=== PATIENT | female | born 1975 | race Two or more races ===

== ENCOUNTER 2018-06-09 21:31 | Emergency (ER) | payer OTHER ==
[~2018-06-09] VITALS: Ht 165.1 cm; Wt 109.8 kg
[2018-06-09] MEDS ORDERED: LISINOPRIL-HCT1 EACH ORAL (21:43)
[2018-06-09] MEDS ORDERED: ASPIRIN81 M3 PO (21:43)
--- NOTE | 2018-06-09 21:49 | NUR ---
ED Nurse Note: PT CAME IN FROM HOME C/O COUGH AND THROAT SWELLING. PER PT IT FEEL IF SOMETHING IS STUCK IN HER THROAT. PT HAS PAIN IN HER THROAT DUE TO COUGH
[2018-06-09 21:50] VITALS: BP 144/90
[2018-06-09] MEDS ORDERED: ALBUTEROL SULF8.5 GM INH (22:20)
[2018-06-09] MEDS ORDERED: MUCINEX FAST-M1 EAC4 PO (22:20)
[2018-06-09] MEDS ORDERED: TEMOVATE15 GM TOP (22:20)
[2018-06-09 22:27] VITALS: BP 144/90
--- NOTE | 2018-06-09 22:28 | NUR ---
ER DISCHARGE NOTE: Patient is cleared to be discharged per ERMD, pt is aox4, on room air, with stable vital signs. pt was given dc and prescription instructions, pt was able to verbalize understanding, pt id band remvoed. pt is able to ambulate with steady gait. pt took all belongings.
--- NOTE | 2018-06-10 01:03 | Emergency Room Report ---
History of Present Illness General Chief Complaint: Upper Respiratory Illness Source: Patient Present Illness HPI 43-year-old female presents to ED c/o sore throat, cough and congestion x 1 day. pain is dull 4/10 nonradiating. notes cough with phlegm. denies fevesr or chills. denies sick contacts or recent travel. no other aggravating or relieving factors. denies any other assoicated symptoms. Allergies: Coded Allergies: MORPHINE (Verified Allergy, Unknown, 06/09/18) Patient History Past Medical History: HTN Past Surgical History: wilmer Pertinent Family History: none Social History: Denies: smoking, alcohol use, drug use Last Menstrual Period: 05/13/2018 Now: No Immunizations: UTD Reviewed Nursing Documentation: PMH: Agreed; PSxH: Agreed Nursing Documentation-PMH Past Medical History: No History, Except For Hx Hypertension: Yes Hx Gastrointestinal Problems: Yes - cholecystectomy 1999 Review of Systems All Other Systems: negative except mentioned in HPI Physical Exam Vital Signs Date Time Temp Pulse Resp B/P (MAP) Pulse Ox O2 Delivery O2 Flow Rate FiO2 06/09/18 21:36 97.9 83 16 144/90 95 Room Air Sp02 EP Interpretation: reviewed, normal General Appearance: no apparent distress, alert, GCS 15, non-toxic Head: normocephalic, atraumatic Eyes: bilateral eye normal inspection, bilateral eye PERRL ENT: hearing grossly normal, no angioedema, normal voice, TMs + canals normal, pharyngeal erythema Neck: full range of motion, supple/symm/no masses Respiratory: chest non-tender, lungs clear, normal breath sounds, speaking full sentences Cardiovascular #1: regular rate, rhythm, no edema Cardiovascular #2: 2+ carotid (R), 2+ carotid (L), 2+ radial (R), 2+ radial (L) , 2+ dorsalis pedis (R), 2+ dorsalis pedis (L) Gastrointestinal: normal bowel sounds, non tender, soft, non-distended, no guarding, no rebound Rectal: deferred Genitourinary: normal inspection, no CVA tenderness Musculoskeletal: back normal, gait/station normal, normal range of motion, non- tender Neurologic: alert, oriented x3, responsive, motor strength/tone normal, sensory intact, speech normal Psychiatric: judgement/insight normal, memory normal, mood/affect normal, no suicidal/homicidal ideation Reflexes: 3+ bicep (R), 3+ bicep (L), 3+ tricep (R), 3+ tricep (L), 3+ knee (R) , 3+ knee (L) Skin: normal color, warm/dry, well hydrated, rash - eczematous rash to fingers Lymphatic: no adenopathy Medical Decision Making Diagnostic Impression: Primary Impression: Rash Additional Impression: Upper respiratory infection Qualified Codes: J06.9 - Acute upper respiratory infection, unspecified ER Course Hospital Course 43-year-old female presents to ED complaining of cough, congestion and sore throat, and rash Differential diagnoses include: URI, pharyngitis, otitis media, asthma Clinical course Patient placed on stretcher. After initial history, physical exam reveals a young female in no acute distress. Bilateral TM unremarkable. minimal pharyngeal erythema. No tonsillar exudates. No lymphadenopathy. lungs clear. abdomen soft. patient has bumpy eczematous rash to fingers. appears like dishydrotic ezcema Discussed findings with patient. Safe for discharge close outpatient follow- up. We'll provide prescriptions. patient states she has a PMD Diagnosis - rash, URI Stable and discharged home with Rx clobetasol, mucinex, albuterol. Instructed to followup with PMD. Return to ED if symptoms recur or worsen Last Vital Signs Date Time Temp Pulse Resp B/P (MAP) Pulse Ox O2 Delivery O2 Flow Rate FiO2 06/09/18 22:27 97.9 83 16 144/90 95 Room Air Status: improved Disposition: HOME, SELF-CARE Condition: Stable Scripts Albuterol Sulfate* (ALBUTEROL SULFATE MDI*) 8.5 Gm Hfa.aer.ad 2 PUFF INH Q6H, #1 EA 0 Refills Prov: Eligio Aiken MD 06/09/18 Diphenhydram/PE/Dm/Acetamin/GG (Mucinex Fast-Max Day-Nite Cold) 1 Each Tablet.seq 1 EACH PO Q6HR, #30 SEQUEL Prov: Eligio Aiken MD 06/09/18 Clobetasol Propionate (Clobetasol Propionate) 15 Gm Oint...g. 1 APPLIC TOP TWICE A DAY, #15 GM Prov: Eligio Aiken MD 06/09/18 Referrals: Ameya Franco. [facility] Patient Instructions: Upper Respiratory Infection, Adult, Hand Dermatitis, Easy -to-Read Eligio Aiken MD Jun 10, 2018 01:03
== END 2018-06-09 22:28 | disposition home or self-care (01) ==
LOC: EMR 22:00
DX: J06.9 Acute upper respiratory infection, unspecified (principal); I10 Essential (primary) hypertension
CPT/HCPCS: 99283

== ENCOUNTER 2020-02-08 15:13 | Emergency (ER) | payer OTHER ==
[~2020-02-08] VITALS: Ht 165.1 cm; Wt 117.0 kg
[~2020-02-08 15:13] MED LIST: ALBUTEROL SULF8.5 GM INH; ASPIRIN81 M3 PO; LISINOPRIL-HCT1 EACH ORAL; MUCINEX FAST-M1 EAC4 PO; TEMOVATE15 GM TOP
[2020-02-08] MEDS ORDERED: ASPIRIN325 MG ORAL (15:26)
[2020-02-08] MEDS ORDERED: GABAPENTIN100 MG ORAL (15:26)
[2020-02-08] MEDS ORDERED: Fluorescein Strips RIGHT EYE ONE (15:30)
[2020-02-08] MEDS ORDERED: Tetracaine 0.5% Opth 4ml Soln RIGHT EYE ONE (15:30)
--- NOTE | 2020-02-08 15:32 | NUR ---
ED Nurse Note: Pt walked into ED from home for R eye problems. She has R eye pain 7/10, itching, redness since yesterday. Visual acuity test done. Pt is alert and orientedx4, ambulatory. She feels as if "balls in her eyes."
[2020-02-08 15:34] VITALS: BP 129/81
--- NOTE | 2020-02-08 16:23 | Emergency Room Report ---
History of Present Illness General Chief Complaint: Eye Problems Source: Patient Present Illness HPI 44 YO female presents to the ED c/o 10/07 in severity right eye scratching sensation, erythema and pain. Pt. denies contact lens use. She denies having anything notable get into her eye. She denies loss of vision or changes in her vision. Pt. reports symptoms began in the inner corner of the right eye this am and have progressed to the rest of the eye. She denies itchiness. She denies nausea or vomiting. Pt. 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 Pt. reports some increased lacrimation. She reports hx of elevated BP's but have been normal recently. Denies: Floaters, Flashing lights, or Diplopia/blurry vision. Allergies: Coded Allergies: MORPHINE (Verified Allergy, Unknown, 06/09/18) COVID-19 Screening Contact w/high risk pt: No Experienced COVID-19 symptoms?: No COVID-19 Testing performed SENIOR QUALITY ASSURANCE SPECIALIST: No Patient History Past Medical History: see triage record Past Surgical History: none Pertinent Family History: none Now: No Reviewed Nursing Documentation: PMH: Agreed; PSxH: Agreed Nursing Documentation-PMH Past Medical History: No History, Except For Hx Hypertension: Yes Hx Gastrointestinal Problems: Yes - cholecystectomy 1999 Review of Systems All Other Systems: negative except mentioned in HPI Physical Exam Vital Signs Date Time Temp Pulse Resp B/P (MAP) Pulse Ox O2 Delivery O2 Flow Rate FiO2 02/08/20 15:20 97.7 87 16 124/89 (101) 99 Room Air Sp02 EP Interpretation: reviewed, normal General Appearance: no apparent distress, alert, GCS 15, non-toxic Head: normocephalic, atraumatic Eyes: bilateral eye normal inspection, bilateral eye PERRL, bilateral eye photophobia - no significant photophobia, bilateral eye scleral icterus - Left 20/50, right 20/25, bilateral eye other - No evidence of rash, no evidence of infestation, there is some purulent discharge noted. No increase in fluorescein uptake seen. Please see Guru-Pen pressure measurements in MDM portion of chart. No evidence of foreign body upon lid flip. ENT: hearing grossly normal, normal voice Neck: full range of motion, no meningismus, no bony tend Respiratory: lungs clear, normal breath sounds, speaking full sentences Cardiovascular #1: regular rate, rhythm Musculoskeletal: normal range of motion, gait/station normal, non-tender Neurologic: alert, motor strength/tone normal, oriented x3, sensory intact, responsive, speech normal Psychiatric: judgement/insight normal Skin: no rash, normal color Medical Decision Making PA Attestation Dr. Castillo Is my supervising Physician whom patient management has been discussed with. Diagnostic Impression: Primary Impression: Conjunctivitis Qualified Codes: H10.021 - Other mucopurulent conjunctivitis, right eye Additional Impression: Irritation of right eye ER Course 44 YO female presents to the ED c/o 10/07 in severity right eye scratching sensation, erythema and pain. Pt. denies contact lens use. She denies having anything notable get into her eye. She denies loss of vision or changes in her vision. Pt. reports symptoms began in the inner corner of the right eye this am and have progressed to the rest of the eye. She denies itchiness. She denies nausea or vomiting. Pt. 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 Pt. reports some increased lacrimation. She reports hx of elevated BP's but have been normal recently. Denies: Floaters, Flashing lights, or Dip lopia/blurry vision. - Pt [reports/denies] Contact lens use. Ddx considered but are not limited to: corneal abrasion, acute glaucoma, globe rupture, FB, Corneal Ulcer, conjunctivitis. Iridis Vital signs: are WNL, pt. is afebrile H&PE are most consistent with: corneal abrasion ORDERS: -Tetracaine and Fluorescein Stain of the Right eye: No appreciable increase in fluorescein uptake.There is no involvement of the iris or pupil. Negative Alvin sign. Pt. had positive relief of pain with tetracaine drops. there was negative evidence of Fb, deep ulcer, or rupture. Guru-pen : initial readings of 42, 11 and 28 while pt. sitting. Then had patient lay down and tonopressures were: 11, 27,16 and 18. ( given lower pressure readings, and not having a mid-fixed dilated pupil I do not suspect acute glaucoma at this time. ) Pt. is aware of the initial higher reading of 42, but normal repeat pressures and is to discuss this as well with ophthalmology at follow up. corneal abrasion still mildly suspected with secondary conjunctivitis, Pt. is treated accordingly which covers both. Given Ophthalmology follow up instructions. ED INTERVENTIONS: None at this time. The patient verbalized her understanding and agreement with proposed treatment plan as well as close ophthalmology follow-up in addition to pertinent information to provide the electroencephalographic technician with during her follow-up visit. All questions were answered. DISCHARGE: At this time pt. is stable for d/c to home. Will provide printed patient care instructions, and any necessary prescriptions. Care plan and follow up instructions have been discussed with the patient prior to discharge. . Last Vital Signs Date Time Temp Pulse Resp B/P (MAP) Pulse Ox O2 Delivery O2 Flow Rate FiO2 02/08/20 15:34 97.7 98 18 129/81 97 Room Air Disposition: HOME, SELF-CARE Condition: Stable Scripts Acetaminophen* (TYLENOL EXTRA STRENGTH*) 500 Mg Tablet 500 MG ORAL Q6H, #30 TAB 0 Refills Prov: Parul Lee 02/08/20 Ofloxacin (OCUFLOX) 5 Ml Drops 1 DRP OP TID for 5 Days, #5 ML Prov: Parul Lee 02/08/20 Referrals: Ameya Franco. [facility] Patient Instructions: Bacterial Conjunctivitis, [id number] Additional Instructions: Take medications as directed. Follow up with a Visitor Services Assistant within 3 days, even if your symptoms have resolved. --Please review list of primary care clinics, if you do not already have a primary care provider. Return immediately to the ED if new symptoms occur, or current symptoms become worse. - Please note that this Emergency Department Report was dictated using [employer] childhood lead teacher technology software, occasionally this can lead to erroneous entry secondary to interpretation by the dictation equipment. Parul Lee Feb 08, 2020 16:23
[2020-02-08] MEDS ORDERED: TYLENOL EXTRA500 MG ORAL (16:25)
[2020-02-08] MEDS ORDERED: OCUFLOX5 ML OP (16:25)
--- NOTE | 2020-02-08 16:42 | NUR ---
ER DISCHARGE NOTE: Patient is cleared to be discharged per ERMD, pt is aox4, on room air, with stable vital signs. pt was given dc and prescription instructions, pt was able to verbalize understanding, pt id band removed. pt is able to ambulate with steady gait. pt took all belongings.
[2020-02-08 16:43] VITALS: BP 125/77
== END 2020-02-08 17:00 | disposition home or self-care (01) ==
LOC: EMR 16:57
DX: H10.021 Other mucopurulent conjunctivitis, right eye (principal); I10 Essential (primary) hypertension; Z90.49 Acquired absence of other specified parts of digestive tract; Z88.5 Allergy status to narcotic agent
CPT/HCPCS: 99282